=== PATIENT | male | born 1935 | race Caucasian/White ===

== ENCOUNTER 2021-09-23 22:45 | Emergency (ER) | payer MEDICARE ==
[~2021-09-23] VITALS: Ht 185.4 cm; Wt 65.8 kg
[2021-09-23] MEDS ORDERED: ASPI81CH PO (22:56)
[2021-09-23] MEDS ORDERED: ALLO100 PO (22:56)
[2021-09-23] MEDS ORDERED: GABA300 PO (22:57)
[2021-09-23] MEDS ORDERED: POTA8 PO (22:57)
[2021-09-23] MEDS ORDERED: Flomax0.4 MG PO (22:57)
[2021-09-23] MEDS ORDERED: TORSE20 PO (22:58)
[2021-09-23] MEDS ORDERED: LORA.5 PO (22:58)
[2021-09-23] MEDS ORDERED: LISI20 PO (22:58)
[2021-09-23] MEDS ORDERED: TRAZ50 PO (22:58)
== END 2021-09-24 02:00 | disposition home or self-care (01) ==
LOC: ER 22:45
DX: S63.283A Dislocation of proximal interphalangeal joint of left middle finger, initial encounter (principal); S01.412A Laceration without foreign body of left cheek and temporomandibular area, initial encounter; S51.812A Laceration without foreign body of left forearm, initial encounter; I10 Essential (primary) hypertension; M10.9 Gout, unspecified; Z87.891 Personal history of nicotine dependence; Z79.82 Long term (current) use of aspirin; Z79.899 Other long term (current) drug therapy; W19.XXXA Unspecified fall, initial encounter
CPT/HCPCS: 70450; 72125; 73090; 73140; A9270

== ENCOUNTER → 2021-11-07 | Outpatient (CLI) | payer OTHER ==
[~2021-11-07] MED LIST: ALLO100 PO; ASPI81CH PO; Flomax0.4 MG PO; GABA300 PO; LISI20 PO; LORA.5 PO; POTA8 PO; TORSE20 PO; TRAZ50 PO
[2021-11-07 14:13] LABS: Albumin, Blood 2.7 g/dL (3.4-5.0); Albumin/Globulin Ratio 0.8 (0.8-1.8); Bilirubin, Total 0.3 mg/dL (0.1-1.0); Bun/Creatinine Ratio 23.4 (12.0-20.0); Calcium, Blood 8.7 mg/dL (8.5-10.1); Creatinine, Blood 1.88 mg/dL (0.60-1.20); Globulin, Blood 3.5 g/dL (2.2-4.0); Potassium, Blood 5.6 mmol/L (3.5-5.5); Total Protein, Blood 6.2 g/dL (6.4-8.2)
[2021-11-07 14:46] LABS: Hematocrit 38.1 % (37.0-53.0); Hemoglobin 12.1 g/dL (13.5-17.5); Mean Corpuscular HGB 29.9 pg (26.0-34.0); Mean Corpuscular HGB Conc 31.8 g/dL (31.5-36.5); Mean Corpuscular Volume 94 fL (80-100); Mean Platelet Volume 11.1 fL (9.1-12.4); Platelet Count 252 K/mm3 (150-400); RDW Coefficient Variation 13.6 % (11.7-14.2); RDW Standard Deviation 47.1 fL (35.1-46.3); Red Blood Cell Count 4.05 M/mm3 (4.30-5.90); White Blood Cell Count 8.53 K/mm3 (4.00-11.30)
== END | disposition home or self-care (01) ==
LOC: LAB SHORT 08:10
PROVIDERS: Family Medicine
DX: I11.0 Hypertensive heart disease with heart failure (principal); I50.9 Heart failure, unspecified; M10.9 Gout, unspecified; N40.0 Benign prostatic hyperplasia without lower urinary tract symptoms
CPT/HCPCS: 80053; 83880; 85027

== ENCOUNTER → 2021-11-30 | Outpatient (CLI) | payer OTHER ==
[2021-11-30 19:56] LABS: Hematocrit 40.9 % (37.0-53.0); Hemoglobin 13.4 g/dL (13.5-17.5); Mean Corpuscular HGB 29.6 pg (26.0-34.0); Mean Corpuscular HGB Conc 32.8 g/dL (31.5-36.5); Mean Corpuscular Volume 90 fL (80-100); Mean Platelet Volume 10.6 fL (9.1-12.4); Platelet Count 277 K/mm3 (150-400); RDW Coefficient Variation 13.5 % (11.7-14.2); RDW Standard Deviation 44.9 fL (35.1-46.3); Red Blood Cell Count 4.53 M/mm3 (4.30-5.90); White Blood Cell Count 10.21 K/mm3 (4.00-11.30)
== END ==
LOC: LAB SHORT 19:26
PROVIDERS: Family Medicine
DX: N40.0 Benign prostatic hyperplasia without lower urinary tract symptoms (principal); M10.9 Gout, unspecified; I11.0 Hypertensive heart disease with heart failure; I50.9 Heart failure, unspecified; G60.9 Hereditary and idiopathic neuropathy, unspecified; Z79.82 Long term (current) use of aspirin
CPT/HCPCS: 83880; 85027

== ENCOUNTER 2022-05-08 16:16 | Emergency (ER) | payer OTHER ==
[~2022-05-08] VITALS: Ht 172.7 cm; Wt 70.3 kg
== END 2022-05-08 20:53 | disposition home or self-care (01) ==
LOC: ER 16:16
DX: Z04.89 Encounter for examination and observation for other specified reasons (principal); I10 Essential (primary) hypertension; Z79.899 Other long term (current) drug therapy; Z87.891 Personal history of nicotine dependence; Z79.82 Long term (current) use of aspirin
CPT/HCPCS: 99283